=== PATIENT | female | born 1990 | race Two or more races ===

== ENCOUNTER 2018-10-29 12:13 | Emergency (ER) | payer SELFPAY ==
[~2018-10-29] VITALS: Ht 157.5 cm; Wt 61.0 kg
[2018-10-29 12:24] VITALS: BP 143/81; Ht 157.5 cm; Wt 61.0 kg
[2018-10-29 13:03] LABS: microscopic required? YES; urine erythrocyte NEGATIVE (NEGATIVE)
== END 2018-10-29 14:14 | disposition home or self-care (01) ==
LOC: ED 12:13
PROVIDERS: Emergency Medicine
DX: B37.3 Candidiasis of vulva and vagina (principal)
CPT/HCPCS: 87491; 87591

== ENCOUNTER 2019-02-23 17:31 | Emergency (ER) | payer OTHER ==
[~2019-02-23] VITALS: Ht 160 cm; Wt 66.2 kg
[2019-02-23 17:56] VITALS: Ht 160 cm; Wt 66.2 kg
[2019-02-23 20:08] VITALS: BP 136/94
== END 2019-02-23 20:08 | disposition home or self-care (01) ==
LOC: ED 17:31
DX: N76.0 Acute vaginitis (principal)
CPT/HCPCS: 87491; 87591